=== PATIENT | female | born 1980 | race Caucasian/White ===

== ENCOUNTER 2016-05-18 21:58 | Emergency (ER) | payer OTHER ==
[~2016-05-18] VITALS: Ht 152.4 cm; Wt 84.0 kg
[2016-05-18] MEDS ORDERED: METHADONE PO (22:40)
[2016-05-18] MEDS ORDERED: MOBIC15 MG PO (23:50)
[2016-05-19 00:01] LABS: ADD MIUA? NO; BILIRUBIN NEGATIVE; BLOOD NEGATIVE; COLOR YELLOW ((YELLOW)); GLUCOSE (STRIP) NEGATIVE; KETONES NEGATIVE; LEUKOCYTES NEGATIVE; NITRITE NEGATIVE; PROTEIN (STRIP) NEGATIVE; SPECIFIC GRAVITY 1.027 (1.000-1.030); UCUL ADDED? NO; UROBILINOGEN 0.2 MG/DL (0.2-1.0)
[2016-05-19] MEDS ORDERED: MOTRIN800 MG PO (00:08)
[2016-05-19 00:16] VITALS: BP 127/79
== END 2016-05-19 00:38 | disposition home or self-care (01) ==
LOC: EXP 21:58 → EME 21:58 → EXP 05-19 00:38
PROVIDERS: Physician Assistant
DX: S92.301A Fracture of unspecified metatarsal bone(s), right foot, initial encounter for closed fracture (principal); M54.5 Low back pain; G89.29 Other chronic pain; I10 Essential (primary) hypertension; F17.200 Nicotine dependence, unspecified, uncomplicated
CPT/HCPCS: 73630; 81003; 99281; 99284

== ENCOUNTER 2016-09-16 11:46 | Emergency (ER) | payer OTHER ==
[~2016-09-16] VITALS: Ht 152.4 cm; Wt 89.2 kg
[~2016-09-16 11:46] MED LIST: METHADONE PO; MOBIC15 MG PO; MOTRIN800 MG PO
[2016-09-16] MEDS ORDERED: OMEPRAZOLE20 M2 PO (13:11)
[2016-09-16] MEDS ORDERED: LISINOPRIL40 MG PO (13:11)
[2016-09-16] MEDS ORDERED: WELLBUTRIN SR100 MG PO (13:12)
[2016-09-16] MEDS ORDERED: VENTOLIN HFA18 GM IH (13:12)
[2016-09-16 15:03] VITALS: BP 120/90
== END 2016-09-16 15:18 | disposition left against medical advice (07) ==
LOC: RME 11:46 → EME 11:46 → RME 15:18
DX: R07.9 Chest pain, unspecified (principal); J06.9 Acute upper respiratory infection, unspecified; R51 Headache; H92.03 Otalgia, bilateral; F17.200 Nicotine dependence, unspecified, uncomplicated; I10 Essential (primary) hypertension
CPT/HCPCS: 71020; 80048; 84484; 84702; 85027; 93005; 99281; 99284

== ENCOUNTER 2016-12-18 12:30 | Emergency (ER) | payer OTHER ==
[~2016-12-18] VITALS: Ht 152.4 cm; Wt 82.3 kg
[~2016-12-18 12:30] MED LIST changes: +LISINOPRIL40 MG PO; +OMEPRAZOLE20 M2 PO; +VENTOLIN HFA18 GM IH; +WELLBUTRIN SR100 MG PO
[2016-12-18 13:26] LABS: ADD MIUA? YES; BILIRUBIN NEGATIVE; BLOOD NEGATIVE; COLOR YELLOW ((YELLOW)); GLUCOSE (STRIP) NEGATIVE; KETONES NEGATIVE; LEUKOCYTES TRACE; NITRITE NEGATIVE; PROTEIN (STRIP) NEGATIVE; SPECIFIC GRAVITY 1.014 (1.000-1.030)
[2016-12-18 13:42] LABS: BACTERIA NONE SEEN /HPF; EPITHELIAL CELLS RARE /HPF; MUCUS TRACE /LPF; RED BLOOD CELLS 0-5 /HPF (0-5); WHITE BLOOD CELLS 0-5 /HPF (0-5)
[2016-12-18 13:47] LABS: CHLORIDE 100 mEq/L (99-109); POTASSIUM 3.7 mEq/L (3.7-5.4); SODIUM 138 mEq/L (136-147)
[2016-12-18] MEDS ORDERED: BACLOFEN10 MG PO (13:48)
[2016-12-18 13:49] LABS: GLUCOSE 67 mg/dL (70-99)
[2016-12-18 13:51] LABS: ANION GAP 11 MEQ/L (2-14)
[2016-12-18 13:53] LABS: GFR ESTIMATE (CALCULATED) > 59 mL/min/
[2016-12-18 13:54] LABS: UREA NITROGEN (BUN) 7 mg/dL (9-23)
[2016-12-18 14:01] LABS: QUANTITATIVE HCG < 4.0 MIU/ML
[2016-12-18] MEDS ORDERED: PREDNISONE50 MG PO (14:12)
[2016-12-18 14:15] VITALS: BP 130/79
== END 2016-12-18 14:26 | disposition home or self-care (01) ==
LOC: EME 12:30
PROVIDERS: Physician Assistant
DX: M54.5 Low back pain (principal); I10 Essential (primary) hypertension; F19.10 Other psychoactive substance abuse, uncomplicated; F17.200 Nicotine dependence, unspecified, uncomplicated; Z88.0 Allergy status to penicillin
CPT/HCPCS: 80048; 81003; 84702; 99281; 99284; J1885

== ENCOUNTER 2017-01-28 11:59 | Emergency (ER) | payer OTHER ==
[~2017-01-28] VITALS: Ht 152.4 cm; Wt 83.8 kg
[~2017-01-28 11:59] MED LIST changes: +BACLOFEN10 MG PO; +PREDNISONE50 MG PO
[2017-01-28 12:57] LABS: HEMATOCRIT 46.7 % (36.0-46.0); MCH 28.5 PG (29.0-34.0); MCHC 32.8 G/DL (30.0-36.0); MEAN PLAT.VOLUME 9.9 uM^3 (9.5-12.4); PLATELET COUNT 366 K/uL (156-360); RBC DIS.WIDTH-CV 12.5 % (11.8-14.6); RBC DIS.WIDTH-SD 39.5 % (39-53); RED BLOOD COUNT 5.37 M/uL (3.80-5.20); WHITE BLOOD COUNT 11.3 K/uL (4.1-10.2)
[2017-01-28 13:00] LABS: ADD MIUA? NO; BILIRUBIN NEGATIVE; BLOOD NEGATIVE; COLOR YELLOW ((YELLOW)); GLUCOSE (STRIP) NEGATIVE; KETONES NEGATIVE; LEUKOCYTES NEGATIVE; NITRITE NEGATIVE; PROTEIN (STRIP) NEGATIVE; SPECIFIC GRAVITY 1.009 (1.000-1.030); UCUL ADDED? NO; UROBILINOGEN 0.2 MG/DL (0.2-1.0)
[2017-01-28 13:08] LABS: CHLORIDE 99 mEq/L (99-109); POTASSIUM 4.1 mEq/L (3.7-5.4); SODIUM 138 mEq/L (136-147)
[2017-01-28 13:10] LABS: GLUCOSE 99 mg/dL (70-99)
[2017-01-28 13:11] LABS: ANION GAP 10 MEQ/L (2-14)
[2017-01-28 13:12] LABS: TOTAL BILIRUBIN 0.4 mg/dL (0.0-1.0)
[2017-01-28 13:13] LABS: ALKALINE PHOSPHATASE 103 IU/L (3-129)
[2017-01-28 13:14] LABS: GFR ESTIMATE (CALCULATED) > 59 mL/min/
[2017-01-28 13:15] LABS: UREA NITROGEN (BUN) 12 mg/dL (9-23)
[2017-01-28 13:17] LABS: LIPASE 7 U/L (1.0-51.0)
[2017-01-28 13:24] LABS: QUANTITATIVE HCG < 4.0 MIU/ML
[2017-01-28 13:29] LABS: AMPHETAMINE NEGATIVE (500 ng/mL); BARBITURATES NEGATIVE (200 ng/mL); BENZODIAZEPINES NEGATIVE (150 ng/mL); COCAINE NEGATIVE (150 ng/mL); INTERNAL CONTROLS VALID? YES; METHADONE PRESUMPTIVE POSITIVE (200 ng/mL); METHAMPHETAMINE NEGATIVE (500 ng/mL); OPIATES (MORPHINE) NEGATIVE (100 ng/mL); OXYCODONE NEGATIVE (100 ng/mL); PHENCYCLIDINE NEGATIVE (25 ng/mL); PROPOXYPHENE NEGATIVE (300 ng/mL); THC CANNABINOIDS NEGATIVE (50 ng/mL); TRICYCLIC ANTIDEPRESSANTS NEGATIVE (300 ng/mL)
[2017-01-28] MEDS ORDERED: LEVAQUIN750 MG PO (14:20)
[2017-01-28] MEDS ORDERED: ZOFRAN ODT4 MG PO (14:23)
[2017-01-28 14:37] VITALS: BP 142/80
== END 2017-01-28 14:37 | disposition home or self-care (01) ==
LOC: EME 11:59
DX: J32.9 Chronic sinusitis, unspecified (principal); R11.2 Nausea with vomiting, unspecified; R05 Cough; R42 Dizziness and giddiness; H92.01 Otalgia, right ear; R04.0 Epistaxis; I10 Essential (primary) hypertension; Z91.14 Patient's other noncompliance with medication regimen; F17.200 Nicotine dependence, unspecified, uncomplicated
CPT/HCPCS: 70486; 71020; 80053; 80306 90; 81003; 83690; 84702; 85027; 99281; 99285

== ENCOUNTER 2017-05-25 11:05 | Emergency (ER) | payer OTHER ==
[~2017-05-25] VITALS: Ht 152.4 cm; Wt 88.8 kg
[~2017-05-25 11:05] MED LIST changes: +LEVAQUIN750 MG PO; +ZOFRAN ODT4 MG PO
[2017-05-25 12:02] LABS: HEMATOCRIT 42.7 % (36.0-46.0); HEMOGLOBIN 14.5 G/DL (11.9-15.5); MCH 28.9 PG (29.0-34.0); MCV 85.2 FL (83-99); PLATELET COUNT 342 K/uL (156-360); RBC DIS.WIDTH-CV 12.2 % (11.8-14.6); RBC DIS.WIDTH-SD 37.9 % (39-53); RED BLOOD COUNT 5.01 M/uL (3.80-5.20); WHITE BLOOD COUNT 11.8 K/uL (4.1-10.2)
[2017-05-25 12:17] LABS: CHLORIDE 101 mEq/L (99-109); POTASSIUM 3.4 mEq/L (3.7-5.4); SODIUM 139 mEq/L (136-147)
[2017-05-25 12:28] LABS: TROP-I INTERPRETATION NEGATIVE; TROPONIN-I < 0.01 ng/mL (0.0-0.30)
[2017-05-25 12:30] LABS: GLUCOSE 100 mg/dL (70-99)
[2017-05-25 12:32] LABS: D-DIMER ELISA < 150.00 ng/mLDDU (<230)
[2017-05-25 12:34] LABS: CREATININE 0.8 mg/dL (0.6-1.3); GFR ESTIMATE (CALCULATED) > 59 mL/min/
[2017-05-25 12:35] LABS: UREA NITROGEN (BUN) 13 mg/dL (9-23)
[2017-05-25 12:42] LABS: QUANTITATIVE HCG < 4.0 MIU/ML
[2017-05-25 13:06] VITALS: BP 113/75
== END 2017-05-25 13:07 | disposition home or self-care (01) ==
LOC: EME 11:05
PROVIDERS: Physician Assistant
DX: F41.9 Anxiety disorder, unspecified (principal); I10 Essential (primary) hypertension; F17.200 Nicotine dependence, unspecified, uncomplicated; Z88.2 Allergy status to sulfonamides; Z88.0 Allergy status to penicillin
CPT/HCPCS: 71046; 80048; 84484; 84702; 85027; 85379; 93005; 99281; 99284

== ENCOUNTER 2017-06-10 20:10 | Observation (INO) | payer OTHER ==
[~2017-06-10] VITALS: Ht 152.4 cm; Wt 84.2 kg
[2017-06-10] MEDS ORDERED: HALOPERIDOL1 MG PO (21:13)
[2017-06-10] MEDS ORDERED: LYRICA50 MG PO (21:14)
[2017-06-10] MEDS ORDERED: GABAPENTIN800 MG PO (21:14)
[2017-06-10 22:19] LABS: BASOPHIL (%) 0.3 % (0-1); EOSINOPHIL (%) 1.3 % (0-5); EOSINOPHIL COUNT 0.1 K/uL (0-0.3); HEMOGLOBIN 13.7 G/DL (11.9-15.5); IMMATURE GRANULOCYTE (%) 0.1 % (0.0-0.7); LYMPHOCYTE (%) 25.9 % (15-42); MCH 29.1 PG (29.0-34.0); MCHC 33.4 G/DL (30.0-36.0); MCV 87.2 FL (83-99); MONOCYTE (%) 7.1 % (3-12); MONOCYTE COUNT 0.6 K/uL (0-0.8); NEUTROPHIL (%) 65.3 % (45-76); NEUTROPHIL COUNT 5.1 K/uL (1.8-6.4); PLATELET COUNT 259 K/uL (156-360); RBC DIS.WIDTH-CV 12.1 % (11.8-14.6); RBC DIS.WIDTH-SD 39.1 % (39-53); WHITE BLOOD COUNT 7.8 K/uL (4.1-10.2)
[2017-06-10 22:27] LABS: INTER. NORMALIZED RATIO 1.1
[2017-06-10 22:30] LABS: PTT 31.4 SEC (25-37)
[2017-06-10 22:31] LABS: CHLORIDE 103 mEq/L (99-109); SODIUM 140 mEq/L (136-147)
[2017-06-10 22:32] LABS: GLUCOSE 81 mg/dL (70-99)
[2017-06-10 22:36] LABS: CREATININE 0.8 mg/dL (0.6-1.3); GFR ESTIMATE (CALCULATED) > 59 mL/min/
[2017-06-10 22:37] LABS: UREA NITROGEN (BUN) 8 mg/dL (9-23)
[2017-06-11] MEDS ORDERED: LAMICTAL200 MG PO (00:13)
[2017-06-11] MEDS ORDERED: WELLBUTRIN SR200 MG PO (00:13)
[2017-06-11] MEDS ORDERED: CATAPRES0.1 MG PO (00:14)
[2017-06-11] MEDS ORDERED: HYDROCHLOROTHIA25 MG PO (00:14)
[2017-06-11] MEDS ORDERED: METHADONE 22 MG/1 ML PO (00:14)
[2017-06-11] MEDS ORDERED: VYVANSE20 MG PO (00:14)
[2017-06-11] MEDS ORDERED: BACLOFEN10 MG PO (00:15)
[2017-06-11] MEDS ORDERED: OMEPRAZOLE40 M1 PO (00:15)
[2017-06-11 02:54] VITALS: BP 126/87
[2017-06-11 02:57] LABS: HDL CHOLESTEROL 37 MG/DL (Desirable>=50); LDL CHOLESTEROL 98 mg/dL (Desirable<100); NON-HDL CHOLESTEROL 120 mg/dL (Desirable<160); TOTAL CHOLESTEROL 157 mg/dL (Desirable<200); TRIGLYCERIDES 108 MG/DL (Normal: <150)
[2017-06-11 06:07] LABS: HEMOGLOBIN 13.1 G/DL (11.9-15.5); MCH 28.9 PG (29.0-34.0); MCHC 32.8 G/DL (30.0-36.0); MCV 88.3 FL (83-99); PLATELET COUNT 256 K/uL (156-360); RBC DIS.WIDTH-CV 12.4 % (11.8-14.6); RBC DIS.WIDTH-SD 39.9 % (39-53); RED BLOOD COUNT 4.53 M/uL (3.80-5.20); WHITE BLOOD COUNT 8.2 K/uL (4.1-10.2)
[2017-06-11 07:03] VITALS: BP 124/76
[2017-06-11 09:24] LABS: FOLIC ACID (FOLATE) 6.7 NG/ML (5.0-22.0)
[2017-06-11 10:30] LABS: BENZODIAZEPINES, URINE SCREEN Negative (200 ng/mL)
[2017-06-11 10:43] LABS: HEMOGLOBIN A1c (GLYCOHEMOGLOB) 5.1 % (Below 5.7)
[2017-06-11 11:11] VITALS: BP 131/89
[2017-06-11] MEDS ORDERED: ASPIRIN81 M2 PO (12:49)
== END 2017-06-11 13:00 | disposition home or self-care (01) ==
LOC: EME 20:10 → 5SOUTH 06-11 00:54 → EDOF 06-11 00:54 → 5SOUTH 06-11 00:54 → ENRESERV 06-11 00:58 → 5SOUTH 06-11 02:41
PROVIDERS: Emergency Medicine; Hospitalist; Internal Medicine
DX: G62.9 Polyneuropathy, unspecified (principal); F41.9 Anxiety disorder, unspecified; G89.29 Other chronic pain; M54.5 Low back pain; F11.20 Opioid dependence, uncomplicated; M79.7 Fibromyalgia; I10 Essential (primary) hypertension; F17.210 Nicotine dependence, cigarettes, uncomplicated; Z88.0 Allergy status to penicillin; Z88.2 Allergy status to sulfonamides
CPT/HCPCS: 70450; 80048; 80061; 80306 90; 82607; 82746; 83036; 85025; 85027; 85610; 85730; 93005; 99281; 99285; G0378; J1200; J2765

== ENCOUNTER 2017-08-24 11:58 | Emergency (ER) | payer OTHER ==
[~2017-08-24] VITALS: Ht 152.4 cm; Wt 86.8 kg
[~2017-08-24 11:58] MED LIST changes: +ASPIRIN81 M2 PO; +CATAPRES0.1 MG PO; +GABAPENTIN800 MG PO; +HALOPERIDOL1 MG PO; +HYDROCHLOROTHIA25 MG PO; +LAMICTAL200 MG PO; +LYRICA50 MG PO; +METHADONE 22 MG/1 ML PO; +OMEPRAZOLE40 M1 PO; +VYVANSE20 MG PO; +WELLBUTRIN SR200 MG PO
[2017-08-24] MEDS ORDERED: NAPROSYN500 MG PO (13:16)
[2017-08-24] MEDS ORDERED: PERCOCET 10/1 TABLET PO (13:16)
[2017-08-24 13:43] VITALS: BP 138/80
== END 2017-08-24 13:44 | disposition home or self-care (01) ==
LOC: EME 11:58
DX: M77.12 Lateral epicondylitis, left elbow (principal); M77.11 Lateral epicondylitis, right elbow; G56.03 Carpal tunnel syndrome, bilateral upper limbs; S00.83XA Contusion of other part of head, initial encounter; S39.012A Strain of muscle, fascia and tendon of lower back, initial encounter; W20.8XXA Other cause of strike by thrown, projected or falling object, initial encounter; W19.XXXA Unspecified fall, initial encounter; Y99.0 Civilian activity done for income or pay; I10 Essential (primary) hypertension; F41.9 Anxiety disorder, unspecified; F32.9 Major depressive disorder, single episode, unspecified; F17.200 Nicotine dependence, unspecified, uncomplicated; Z88.2 Allergy status to sulfonamides; Z88.0 Allergy status to penicillin
CPT/HCPCS: 99281; 99283